=== PATIENT | male | born 1980 | race Caucasian/White ===

== ENCOUNTER 2019-05-20 21:03 | Emergency (ER) | payer OTHER ==
[~2019-05-20] VITALS: Ht 172.7 cm; Wt 61.2 kg
[~2019-05-20 21:03] MED LIST: KEFLEX500 MG PO; NORCO 5-325 TA1 EAC1 PO; UNISOM50 MG PO
[2019-05-20] MEDS ORDERED: NORCO 7.5-3251 EACH PO (22:25)
[2019-05-20 22:45] VITALS: BP 118/50
== END 2019-05-20 22:45 | disposition home or self-care (01) ==
LOC: M.ERS 21:03
DX: S42.021A Displaced fracture of shaft of right clavicle, initial encounter for closed fracture (principal); F17.210 Nicotine dependence, cigarettes, uncomplicated; Z88.5 Allergy status to narcotic agent; V29.49XA Motorcycle driver injured in collision with other motor vehicles in traffic accident, initial encounter; Y93.55 Activity, bike riding; Y92.89 Other specified places as the place of occurrence of the external cause; Y99.8 Other external cause status